=== PATIENT | female | born 1975 | race Caucasian/White ===

== ENCOUNTER → 2018-09-10 | Outpatient (CLI) | payer BC ==
--- NOTE | 2018-09-10 10:59 | PCVCIMAG ---
APPROVED REPORT Study performed: 09/10/2018 08:26:50 EXAM: Comprehensive 2D, Doppler, and color-flow Echocardiogram Patient Location: Echo lab Status: routine BSA: 2.07 HR: 60 bpmBP: 122/80 mmHg Rhythm: NSR Other Information Study Quality: Adequate Risk Factors: Cardiac Risk Factors: HTN, Hyperlipidemia, DM Indications Murmur 2D Dimensions IVSd: 8.10 (7-11mm)LVOT Diam: 19.00 (18-24mm) LVDd: 44.12 mm PWd: 9.46 (7-11mm)Ascending Ao: 29.76 (22-36mm) LVDs: 30.76 (25-40mm) Left Atrium: 40.49 (27-40mm) Aortic Root: 27.43 mm LV Single Plane 4CH: 58.59 % LV Single Plane 2CH: 62.95 % Biplane EF: 61.7 % Volumes Left Atrial Volume (Systole) Single Plane 4CH: 51.43 mLSingle Plane 2CH: 44.99 mL LA ESV Index: 24.00 mL/m2 Aortic Valve AoV Peak Jarrett.: 1.88 m/s AO Peak Gr.: 14.16 mmHgLVOT Max P.87 mmHg LVOT Max V: 1.10 m/s KAMERON Vmax: 1.68 cm2 Mitral Valve E/A Ratio: 1.1 MV Decel. Time: 308.18 ms MV E Max Jarrett.: 1.19 m/s MV A Jarrett.: 1.05 m/s IVRT: 51.90 ms TDI E/Lateral E': 9.92E/Medial E': 11.90 Medial E' Jarrett.: 0.10 m/s Lateral E' Jarrett.: 0.12 m/s Pulmonary Valve PV Peak Jarrett.: 1.38 m/sPV Peak Gr.: 7.60 mmHg Pulmonary Vein P Vein S: 0.45 m/sP Vein A: 0.24 m/s P Vein D: 0.48 m/sP Vein A Dur.: 103.8 msec P Vein S/D Ratio: 0.94 Tricuspid Valve TR Peak Jarrett.: 2.32 m/sRAP Estimate: 7.00 mmHg TR Peak Gr.: 21.53 mmHg PA Pressure: 29.00 mmHg Left Ventricle The left ventricle is normal size. There is normal LV segmental wall motion. There is normal left ventricular wall thickness. Left ventricular systolic function is normal. The left ventricular ejection fraction is within the normal range. LVEF is 60-65%. The left ventricular diastolic function is normal. Right Ventricle The right ventricle is normal size. The right ventricular systolic function is normal. Atria The left atrium size is normal. The right atrium size is normal. Aortic Valve The aortic valve is normal in structure. No aortic regurgitation is present. There is no aortic valvular stenosis. Mitral Valve The mitral valve is normal in structure. Trace mitral regurgitation. No evidence of mitral valve stenosis. Tricuspid Valve The tricuspid valve is normal in structure. Trace tricuspid regurgitation. Pulmonary artery pressure is 29 mmHG. Pulmonic Valve The pulmonary valve is normal in structure. There is no pulmonic valvular regurgitation. Great Vessels The aortic root is normal in size. IVC is normal in size and collapses >50% with inspiration. Pericardium There is no pericardial effusion. <Conclusion> The left ventricle is normal size. LVEF is 60-65%. The aortic valve is normal in structure. The mitral valve is normal in structure. Trace mitral regurgitation. The tricuspid valve is normal in structure. Trace tricuspid regurgitation. Pulmonary artery pressure is 29 mmHG. The pulmonary valve is normal in structure. There is no pericardial effusion.
--- NOTE | 2018-09-10 12:32 | PCVCIMAG ---
APPROVED REPORT Imaging Protocol: Rest Tc-99m/Stress Tc-99m 1 day Study performed: 09/10/2018 08:58:41 Indication: Right Shoulder Pain, Elevated Calcium Patient Location: Out-Patient Stress Nurse: Sneha Villalobos RN, SHIELA Serna Tech:Rafa PritchardGLOB Ht: 5 ft 8 in Wt: 207 lbs BSA: 2.07 m2 HR: 88 bpm BP: 117/63 mmHg BMI: 31.4 Rhythm: Sinus Rhythm, Abnormal T wave Medical History Medical History: Hyperlipidemia, HTN, High CA Score, DM Non insulin Medications: Atorvastatin, Jardiance, Lisinopril, Mobic, Metformin Allergies: Quinine Pretest Chest Pain Characteristics: No chest pain Exercise History: Physically active Resting Data Rest SPECT myocardial perfusion imaging was performed in supine position 45 minutes following the intravenous injection of 11 mCi of Tc-99m Sestamibi. Time of rest injection: 09 Date: 09/10/2018 Administration Route: IV Administration Site: Left Hand Exercise Stress At peak stress, the patient was injected intravenously with 36mCi of Tc-99m Sestamibi. Time of stress injection: 1030 Date: 09/10/2018 Administration Route: IV Administration Site: Left Hand Patient continued to exercise for 11 minute(s). Gated Stress SPECT was performed 45 minutes after stress injection. The images were gated to evaluate regional wall motion and calculate left ventricular ejection fraction. Stress Test Details Stress Test: Exercise stress testing was performed using a Vikash protocol. HRMax Heart Rate (APMHR): 176 bpm Resting HR: 88 bpmTarget HR (85% APMHR): 149 bpm Max HR Achieved: 166 bpm % of APMHR: 94 Recovery HR: 96 bpm HR response to stress: Normal HR response to stress BP Resting BP: 117/63 mmHg Max BP: 188/83 mmHg Recovery BP: 144/68 mmHg BP response to stress: Normal blood pressure response to stress. ECG Resting ECG: Normal Sinus Rhythm, T wave Abnormality Stress ECG: Sinus Tachycardia, T Wave Abnormality Maximum ST Deviation: 2.4 mm Arrhythmia: PVC's Recovery ECG: Sinus Rhythm, T wave Abnormality Clinical Reason for Termination: Maximal effort Stress Symptoms: Dyspnea Exercise duration: 11 min 10 sec Exercise capacity: 13.40 METs Overall Exercise Capacity for Age: Good Angina Score: None Symptoms resolved during recovery. Stress ECG Conclusion Ny Treadmill Score is -1.0 which is Moderate risk. Study Data Post stress, the left ventricular ejection was 73%.. SSS: 0 SRS: 3 SDS: 0 TID = 0.67. Perfusion There is a small area of moderately reduced uptake in the apical segment of the anterior wall which is seen on the stress images as well as the resting images. This area thickens and moves normally and is most consistent with attenuation artifact. Wall Motion Normal left ventricular wall motion. Nuclear Conclusion ECG Findings: negative for ischemia Clinical Findings: negative for ischemia Nuclear Findings: negative for ischemia Exercise Capacity: normal Left Ventricular Function: normal 1. Low risk study 2. Post stress left ventricular ejection fraction 73% Interpreted by: Ruddy Ellsi MD Electronically Approved: 09/10/2018 12:31:40
== END | disposition home or self-care (01) ==
LOC: PCVCIMAG 08:16
PROVIDERS: ATTEND Internal Medicine
DX: I10 Essential (primary) hypertension (principal); R01.1 Cardiac murmur, unspecified; R93.1 Abnormal findings on diagnostic imaging of heart and coronary circulation; E11.9 Type 2 diabetes mellitus without complications; E78.5 Hyperlipidemia, unspecified; Z88.1 Allergy status to other antibiotic agents
CPT/HCPCS: 78452; 93017; 93306; A9500